=== PATIENT | male | born 1985 | race Caucasian/White ===

== ENCOUNTER 2023-01-28 08:20 | Inpatient (IN) | payer OTHER ==
[2023-01-28 08:39] VITALS: BMI 29.4
[2023-01-28] MEDS ORDERED: BISMUTH SUBSALICYLATE 262 MG/15 ML BTL PO PRN (09:41)
[2023-01-28] MEDS ORDERED: ONDANSETRON *ODT* 4 MG TABLET SL PRN (09:41)
[2023-01-28] MEDS ORDERED: ACETAMINOPHEN 325 MG TABLET (FP) PO PRN (09:41)
[2023-01-28] MEDS ORDERED: MAG HYDROX/AL HYDROX/SIMETH 30 ML UNIT-DOSE CUP PO PRN (09:41)
[2023-01-28] MEDS ORDERED: IBUPROFEN 400 MG TABLET (FP) PO PRN (09:41)
[2023-01-28] MEDS ORDERED: MAGNESIUM HYDROX 2400MG/30ML ORAL SUSPENSION 30 ML CUP PO PRN (09:41)
[2023-01-28] MEDS ORDERED: hydrOXYzine PAMOATE 25 MG CAPSULE (FP) PO PRN (09:41)
[2023-01-28] MEDS ORDERED: DICYCLOMINE HCL 10 MG CAPSULE PO PRN (09:41)
[2023-01-28] MEDS ORDERED: IBUPROFEN 600 MG TABLET (FP) PO PRN (09:41)
[2023-01-28] MEDS ORDERED: POLYETHYLENE GLYCOL (HEALTHYLAX) 3350 17 GM PACKET PO PRN (09:41)
[2023-01-28] MEDS ORDERED: BENZONATATE 200 MG CAPSULE PO PRN (09:41)
[2023-01-28] MEDS ORDERED: guaiFENesin 600 MG TABLET.ER (FP) PO PRN (09:41)
[2023-01-28] MEDS ORDERED: NALOXONE HCL (KLOXXADO) 8 MG SPRAY NS PRN (09:41)
[2023-01-28] MEDS ORDERED: BENZOCAINE/MENTHOL (CHLORASEPTIC ) LOZENGE MM PRN (09:41)
[2023-01-28] MEDS ORDERED: LOPERAMIDE HCL 2 MG CAPSULE PO PRN (09:41)
[2023-01-28] MEDS ORDERED: NALOXONE HCL 0.4 MG/ML VIAL IM PRN (09:41)
[2023-01-28] MEDS: PRENATAL VITAMINS W/ FOLIC ACID TABLET (FP) PO SCH (10:34)
[2023-01-28 14:53] LABS: POTASSIUM 3.8 mmol/L (3.5-5.1)
[2023-01-28 14:55] LABS: BLOOD UREA NITROGEN 16.7 mg/dL (7-18); CALCIUM 8.7 mg/dL (8.5-10.1)
[2023-01-28 14:58] LABS: CREATININE 0.8 mg/dL (0.55-1.3)
[2023-01-28 15:00] LABS: BILIRUBIN,TOTAL 0.4 mg/dL (0.2-1); TOT PROT 6.8 g/dl (6.4-8.2)
[2023-01-28 15:10] LABS: HEMATOCRIT 37.8 % (35.4-49); HEMOGLOBIN 13.3 GM/dL (11.7-16.9); MCH 30.6 pg (25.7-33.7); MCHC 35.1 g/dl (32.0-35.9); MEAN CELL VOLUME 87.2 fl (80-96); MEAN PLT VOLUME 9.5 fl (7.5-11.1); PLATELET COUNT 256 10^3/uL (134-434); RBC 4.33 M/mm3 (4.00-5.60); RDW 13.6 % (11.9-15.9); WHITE BLOOD COUNT 8.7 K/mm3 (4.0-10.0)
[2023-01-28] MEDS: MELATONIN 5 MG TABLETS PO SCH (22:34)
[2023-01-28] MEDS: THIAMINE HCL 100 MG TABLET (FP) PO SCH (22:34)
[2023-01-28] MEDS: METHOCARBAMOL 500 MG TABLET PO PRN (22:35)
[2023-01-29] MEDS ORDERED: methaDONE HCL 10 MG TABLET (FOR DETOX USE ONLY) PO ONE ×2 (09:09→10:45)
[2023-01-29] MEDS: diazePAM 5 MG TABLET PO PRN ×3 (10:34→22:15)
[2023-01-29] MEDS: METHOCARBAMOL 500 MG TABLET PO PRN (10:35)
[2023-01-29] MEDS: PRENATAL VITAMINS W/ FOLIC ACID TABLET (FP) PO SCH (10:36)
[2023-01-29] MEDS: cloNIDine HCL 0.1 MG TABLET PO PRN ×2 (17:48→22:15)
[2023-01-29] MEDS: THIAMINE HCL 100 MG TABLET (FP) PO SCH (22:13)
[2023-01-29] MEDS: MELATONIN 5 MG TABLETS PO SCH (22:13)
[2023-01-30] MEDS: diazePAM 5 MG TABLET PO PRN ×4 (05:22→22:15)
[2023-01-30] MEDS: METHOCARBAMOL 500 MG TABLET PO PRN (05:22)
[2023-01-30] MEDS: PRENATAL VITAMINS W/ FOLIC ACID TABLET (FP) PO SCH (10:07)
[2023-01-30] MEDS: THIAMINE HCL 100 MG TABLET (FP) PO SCH (22:14)
[2023-01-30] MEDS: MELATONIN 5 MG TABLETS PO SCH (22:14)
[2023-01-31] MEDS: diazePAM 5 MG TABLET PO PRN (05:14)
[2023-01-31 09:29] VITALS: BP 141/92; PULSE 88; RESP 17; TEMP 98.1
[2023-01-31] MEDS ORDERED: methaDONE HCL 10 MG TABLET (FOR DETOX USE ONLY) PO ONE (10:00)
[2023-01-31] MEDS: PRENATAL VITAMINS W/ FOLIC ACID TABLET (FP) PO SCH (10:44)
[2023-02-02] MEDS ORDERED: methaDONE HCL 10 MG TABLET (FOR DETOX USE ONLY) PO ONE (10:00)
== END 2023-01-31 10:00 | disposition left against medical advice (07) | DRG 894 ==
LOC: YASAS 08:20 → EDBD 09:44 → Y6N 09:44
PROVIDERS: ADMIT Allergy & Immunology; ATTEND Surgery
PROC: HZ2ZZZZ Detoxification Services for Substance Abuse Treatment (ICD-10-PCS; principal; 2023-01-28)
DX: F11.23 Opioid dependence with withdrawal (principal); F13.20 Sedative, hypnotic or anxiolytic dependence, uncomplicated; F12.20 Cannabis dependence, uncomplicated; R03.0 Elevated blood-pressure reading, without diagnosis of hypertension; Z87.891 Personal history of nicotine dependence
CPT/HCPCS: 36415; 80053; 85027; 86780; 87811; 93005; 93010; C9803-CS; U0003; U0005